=== PATIENT | female | born 1950 | race Caucasian/White ===

== ENCOUNTER 2017-04-20 20:06 | Inpatient (IN) | payer OTHER ==
[~2017-04-20] VITALS: Ht 157.5 cm; Wt 64.0 kg
[2017-04-20 20:07] VITALS: BP_SYST 120
[2017-04-20] MEDS ORDERED: NACL 0.9% 1,000 ML IV ONE (20:19)
[2017-04-20] MEDS ORDERED: LEVE500T13 PO (20:41)
[2017-04-20] MEDS ORDERED: LIP10 PO (20:48)
[2017-04-20] MEDS ORDERED: LEVO125T8 PO (20:48)
[2017-04-20] MEDS ORDERED: CLOP75TA2 PO (20:49)
[2017-04-20] MEDS ORDERED: ASPI81TA2 PO (20:50)
[2017-04-20] MEDS ORDERED: ASCO500T20 PO (20:50)
[2017-04-20] MEDS ORDERED: CHOL100062 PO (20:51)
[2017-04-20] MEDS ORDERED: TUM500 PO (20:52)
[2017-04-20] MEDS ORDERED: FAMO20TA8 PO (20:52)
[2017-04-20] MEDS ORDERED: BENA10TA2 PO (20:53)
[2017-04-20] MEDS ORDERED: PHEN100C4 PO ×2 (20:54→20:56)
[2017-04-20] MEDS ORDERED: DEXT1CAP3 PO (20:57)
[2017-04-20] MEDS ORDERED: MEMA28CA PO (20:57)
[2017-04-20] MEDS ORDERED: GLU850 PO (20:57)
[2017-04-20 20:58] LABS: BASOPHILS % (AUTO) 0.5 % (0.0-2.0); EOSINOPHILS # (AUTO) 0.1 K/uL (0.0-0.4); EOSINOPHILS % (AUTO) 1.5 % (0.0-4.0); HEMATOCRIT 33.2 % (36-48); HEMOGLOBIN 11.1 g/dL (12.0-16.0); LYMPHOCYTES # (AUTO) 0.7 K/uL (1.0-5.5); LYMPHOCYTES % (AUTO) 11.4 % (20.5-51.5); MEAN CORPUSCULAR HEMOGLOBIN 28 pg (27-31); MEAN CORPUSCULAR HGB CONC 34 % (32-36); MEAN CORPUSCULAR VOLUME 85 fL (79.0-98.0); MONOCYTES # (AUTO) 0.5 K/uL (0.0-1.0); MONOCYTES % (AUTO) 7.6 % (1.7-9.3); NEUTROPHILS # (AUTO) 4.6 K/uL (1.8-7.7); PLATELET COUNT (AUTO) 332 K/uL (130-430); RED BLOOD CELL COUNT(AUTO) 3.91 MIL/uL (4.2-6.2); RED CELL DISTRIBUTION WIDTH 14.4 % (9.0-15.0); WHITE BLOOD COUNT (AUTO) 5.9 K/uL (4.8-10.8)
[2017-04-20] MEDS ORDERED: INSU100V11 SQ ×2 (20:58)
[2017-04-20] MEDS ORDERED: REM15 PO (20:59)
[2017-04-20] MEDS ORDERED: MAG-55 PO (21:01)
[2017-04-20] MEDS ORDERED: ACET-2165 PO (21:02)
[2017-04-20] MEDS ORDERED: BISA5TAB10 PO (21:02)
[2017-04-20] MEDS ORDERED: MAGN400O4 PO (21:03)
[2017-04-20] MEDS ORDERED: GLUC1VIA4 IM (21:04)
[2017-04-20 21:05] LABS: CALCIUM 9.6 mg/dL (8.4-11.0)
[2017-04-20 21:09] LABS: INR 1.1 (0.8-1.2); PROTHROMBIN TIME 11.5 SECS (9.5-12.5)
[2017-04-20 21:11] LABS: ALBUMIN 3.8 g/dL (3.4-4.8); TOTAL BILIRUBIN 0.6 mg/dL (0.0-1.0)
[2017-04-20] MEDS ORDERED: LORazepam 2 MG/ML VIAL IVP ONE (21:15)
[2017-04-20 21:18] LABS: CREATININE 8.67 mg/dL (0.55-1.30)
[2017-04-20] MEDS ORDERED: LORazepam 2 MG/ML VIAL (FOR ER USE) ONE (21:36)
[2017-04-20] MEDS ORDERED: ACETAMINOPHEN 325 MG TABLET PO PRN (22:00)
[2017-04-20] MEDS ORDERED: ZOLPIDEM TARTRATE 5 MG TABLET PO PRN (22:00)
[2017-04-20] MEDS ORDERED: MAGNESIUM SULFATE 50 ML IV PRN (22:00)
[2017-04-20] MEDS ORDERED: POTASSIUM CHLORIDE 10 MEQ TAB.PRT.SR PO PRN (22:00)
[2017-04-20] MEDS ORDERED: DEXTROSE 50% JECT 50 ML DISP.SYRIN IVP PRN (22:00)
[2017-04-20] MEDS ORDERED: ONDANSETRON HCL 4 MG/2 ML VIAL IVP PRN (22:00)
[2017-04-20] MEDS ORDERED: DOCUSATE SODIUM 100 MG CAPSULE PO PRN (22:00)
[2017-04-20] MEDS ORDERED: LORazepam 2 MG/ML VIAL (FOR ER USE) IM ONE (22:30)
[2017-04-21] MEDS: 0.45% NACL 1,000 ML IV SCH ×2 (00:19→09:29)
[2017-04-21] MEDS: LORazepam 2 MG/ML VIAL IVP PRN ×3 (02:58→21:04)
[2017-04-21 07:37] LABS: CALCIUM 8.9 mg/dL (8.4-11.0); CREATININE 7.38 mg/dL (0.55-1.30); POTASSIUM 4.8 mmol/L (3.5-5.1)
[2017-04-21 07:38] LABS: BASOPHILS % (AUTO) 0.5 % (0.0-2.0); EOSINOPHILS # (AUTO) 0.2 K/uL (0.0-0.4); EOSINOPHILS % (AUTO) 2.8 % (0.0-4.0); HEMATOCRIT 30.8 % (36-48); HEMOGLOBIN 10.5 g/dL (12.0-16.0); LYMPHOCYTES # (AUTO) 0.7 K/uL (1.0-5.5); LYMPHOCYTES % (AUTO) 12.5 % (20.5-51.5); MEAN CORPUSCULAR HEMOGLOBIN 29 pg (27-31); MEAN CORPUSCULAR HGB CONC 34 % (32-36); MEAN CORPUSCULAR VOLUME 85 fL (79.0-98.0); MONOCYTES # (AUTO) 0.5 K/uL (0.0-1.0); MONOCYTES % (AUTO) 9.1 % (1.7-9.3); NEUTROPHILS # (AUTO) 4.2 K/uL (1.8-7.7); NEUTROPHILS % (AUTO) 75.1 % (40.0-70.0); PLATELET COUNT (AUTO) 236 K/uL (130-430); RED BLOOD CELL COUNT(AUTO) 3.61 MIL/uL (4.2-6.2); RED CELL DISTRIBUTION WIDTH 14.2 % (9.0-15.0); WHITE BLOOD COUNT (AUTO) 5.6 K/uL (4.8-10.8)
[2017-04-21 08:54] VITALS: BP_SYST 105
[2017-04-21] MEDS: ASPIRIN 81 MG TAB.CHEW PO SCH (09:16)
[2017-04-21] MEDS: levETIRAcetam 500 MG TABLET PO SCH ×2 (09:16→21:00)
[2017-04-21] MEDS: LEVOTHYROXINE SODIUM 0.125 MG TABLET PO SCH (09:16)
[2017-04-21] MEDS: HEPARIN SODIUM,PORCINE 5000 UNITS/ML VIAL SUBCUT SCH ×2 (09:21→21:10)
[2017-04-21 12:14] LABS: BILIRUBIN,URINE NEGATIVE (NEGATIVE); BLOOD, URINE 1+ (NEGATIVE); CLARITY/URINE CLEAR (CLEAR); COLOR,URINE YELLOW (YELLOW); GLUCOSE,URINE TRACE (NEGATIVE); KETONES,URINE NEGATIVE (NEGATIVE); LEUKOCYTE ESTERASE ,URINE TRACE (NEGATIVE); NITRITE, URINE POSITIVE (NEGATIVE); PH,URINE 5.5 (5.0-8.0); PROTEIN URINE NEGATIVE (NEGATIVE); UROBILINOGEN,URINE 0.2 (0.2-1.0)
[2017-04-21 12:29] LABS: BACTERIA,URINE MODERATE /HPF (None Seen); MUCUS,URINE 1+ /LPF (None Seen); RBC,URINE 0-3 /HPF (0-3)
[2017-04-21 12:30] VITALS: BP_SYST 90
[2017-04-21 14:06] VITALS: BP_SYST 97
[2017-04-21] MEDS: cefTRIAXone 1 GM in D5W 50 ML IV SCH (15:48)
[2017-04-21 16:08] VITALS: BP_SYST 97
[2017-04-21 19:30] VITALS: BP_SYST 101
[2017-04-21] MEDS: D5NS 1,000 ML IV SCH (20:46)
[2017-04-21] MEDS: PHENYTOIN 100 MG CAPSULE PO SCH (21:00)
[2017-04-21] MEDS: ATORVASTATIN 10 MG TABLET PO SCH (21:00)
[2017-04-22] MEDS: LORazepam 2 MG/ML VIAL IVP PRN ×2 (01:35→19:53)
[2017-04-22 07:40] LABS: BASOPHILS % (AUTO) 0.7 % (0.0-2.0); EOSINOPHILS # (AUTO) 0.3 K/uL (0.0-0.4); EOSINOPHILS % (AUTO) 5.1 % (0.0-4.0); HEMATOCRIT 33.7 % (36-48); HEMOGLOBIN 11.3 g/dL (12.0-16.0); LYMPHOCYTES # (AUTO) 0.7 K/uL (1.0-5.5); LYMPHOCYTES % (AUTO) 13.1 % (20.5-51.5); MEAN CORPUSCULAR HEMOGLOBIN 29 pg (27-31); MEAN CORPUSCULAR HGB CONC 34 % (32-36); MEAN CORPUSCULAR VOLUME 86 fL (79.0-98.0); MONOCYTES # (AUTO) 0.5 K/uL (0.0-1.0); MONOCYTES % (AUTO) 9.4 % (1.7-9.3); NEUTROPHILS # (AUTO) 3.8 K/uL (1.8-7.7); NEUTROPHILS % (AUTO) 71.7 % (40.0-70.0); PLATELET COUNT (AUTO) 260 K/uL (130-430); RED CELL DISTRIBUTION WIDTH 14.1 % (9.0-15.0); WHITE BLOOD COUNT (AUTO) 5.3 K/uL (4.8-10.8)
[2017-04-22 07:49] LABS: PROTHROMBIN TIME 11.3 SECS (9.5-12.5)
[2017-04-22 07:53] LABS: CALCIUM 9.3 mg/dL (8.4-11.0); CREATININE 5.1 mg/dL (0.55-1.30); POTASSIUM 4.4 mmol/L (3.5-5.1)
[2017-04-22 08:30] VITALS: BP_SYST 118
[2017-04-22] MEDS ORDERED: MEPERIDINE HCL/PF 100 MG/ML AMP ONE ×2 (10:11→10:12)
[2017-04-22] MEDS ORDERED: MIDAZOLAM HCL 5 MG/5 ML VIAL ONE ×2 (10:12)
[2017-04-22] MEDS ORDERED: SIMETHICONE 40 MG/0.6 ML ML ONE (10:12)
[2017-04-22] MEDS ORDERED: MEPERIDINE HCL/PF 100 MG/ML AMP IV ONE ×2 (10:28→10:32)
[2017-04-22] MEDS ORDERED: MIDAZOLAM HCL 5 MG/5 ML VIAL IVP ONE ×4 (10:30→10:38)
[2017-04-22] MEDS: levETIRAcetam 500 MG TABLET PO SCH ×2 (12:10→22:13)
[2017-04-22] MEDS: LEVOTHYROXINE SODIUM 0.125 MG TABLET PO SCH (12:10)
[2017-04-22] MEDS: ASPIRIN 81 MG TAB.CHEW PO SCH (12:10)
[2017-04-22] MEDS: HEPARIN SODIUM,PORCINE 5000 UNITS/ML VIAL SUBCUT SCH ×2 (12:11→22:24)
[2017-04-22] MEDS: D5NS 1,000 ML IV SCH (12:15)
[2017-04-22] MEDS: MORPHINE 2 MG/ML INJ. SYRINGE IVP PRN ×2 (14:00→22:26)
[2017-04-22] MEDS: cefTRIAXone 1 GM in D5W 50 ML IV SCH (14:04)
[2017-04-22] MEDS: SILVER 44.4 ML GEL.ER.ML. TP SCH (16:46)
[2017-04-22 17:04] VITALS: BP_SYST 119
[2017-04-22] MEDS: INSULIN ASPART 100 UNITS/ML, 10 ML VIAL (NovoLOG) SUBCUT PRN ×2 (18:30→22:21)
[2017-04-22 20:00] VITALS: BP_SYST 122
[2017-04-22] MEDS: ATORVASTATIN 10 MG TABLET PO SCH (22:13)
[2017-04-22] MEDS: PHENYTOIN 100 MG CAPSULE PO SCH (22:14)
[2017-04-23] MEDS: LORazepam 2 MG/ML VIAL IVP PRN ×4 (00:04→15:23)
[2017-04-23] MEDS: INSULIN ASPART 100 UNITS/ML, 10 ML VIAL (NovoLOG) SUBCUT PRN ×3 (06:47→21:03)
[2017-04-23 06:56] LABS: BASOPHILS % (AUTO) 0.2 % (0.0-2.0); EOSINOPHILS % (AUTO) 0.6 % (0.0-4.0); HEMATOCRIT 31.7 % (36-48); HEMOGLOBIN 10.7 g/dL (12.0-16.0); LYMPHOCYTES # (AUTO) 0.4 K/uL (1.0-5.5); LYMPHOCYTES % (AUTO) 6.1 % (20.5-51.5); MEAN CORPUSCULAR HEMOGLOBIN 29 pg (27-31); MEAN CORPUSCULAR HGB CONC 34 % (32-36); MEAN CORPUSCULAR VOLUME 85 fL (79.0-98.0); MONOCYTES # (AUTO) 0.5 K/uL (0.0-1.0); MONOCYTES % (AUTO) 8.3 % (1.7-9.3); NEUTROPHILS # (AUTO) 5.2 K/uL (1.8-7.7); NEUTROPHILS % (AUTO) 84.8 % (40.0-70.0); PLATELET COUNT (AUTO) 221 K/uL (130-430); RED BLOOD CELL COUNT(AUTO) 3.72 MIL/uL (4.2-6.2); RED CELL DISTRIBUTION WIDTH 14.1 % (9.0-15.0); WHITE BLOOD COUNT (AUTO) 6.1 K/uL (4.8-10.8)
[2017-04-23 07:05] LABS: CALCIUM 8.5 mg/dL (8.4-11.0); CREATININE 3.01 mg/dL (0.55-1.30); POTASSIUM 3.6 mmol/L (3.5-5.1)
[2017-04-23 08:00] VITALS: BP_SYST 136
[2017-04-23] MEDS: LEVOTHYROXINE SODIUM 0.125 MG TABLET PO SCH (09:00)
[2017-04-23] MEDS: ASPIRIN 81 MG TAB.CHEW PO SCH (09:00)
[2017-04-23] MEDS: levETIRAcetam 500 MG TABLET PO SCH ×2 (09:00→21:00)
[2017-04-23] MEDS: D5NS 1,000 ML IV SCH (09:36)
[2017-04-23] MEDS: HEPARIN SODIUM,PORCINE 5000 UNITS/ML VIAL SUBCUT SCH ×2 (09:36→20:57)
[2017-04-23] MEDS: SILVER 44.4 ML GEL.ER.ML. TP SCH (09:39)
[2017-04-23] MEDS: D5/0.45 NS 1,000 ML IV SCH ×2 (10:15→15:36)
[2017-04-23 12:30] VITALS: BP_SYST 124
[2017-04-23] MEDS: cefTRIAXone 1 GM in D5W 50 ML IV SCH (15:36)
[2017-04-23] MEDS ORDERED: GASTROGRAFIN 120 ML ONE (16:31)
[2017-04-23 16:45] VITALS: BP_SYST 130
[2017-04-23] MEDS: ATORVASTATIN 10 MG TABLET PO SCH (21:00)
[2017-04-23] MEDS: PHENYTOIN 100 MG CAPSULE PO SCH (21:00)
[2017-04-24 00:47] VITALS: BP_SYST 148
[2017-04-24 04:27] VITALS: BP_SYST 136
[2017-04-24] MEDS: D5/0.45 NS 1,000 ML IV SCH (06:00)
[2017-04-24] MEDS: INSULIN ASPART 100 UNITS/ML, 10 ML VIAL (NovoLOG) SUBCUT PRN ×4 (06:36→21:40)
[2017-04-24 07:06] LABS: BASOPHILS % (AUTO) 0.3 % (0.0-2.0); EOSINOPHILS % (AUTO) 0.3 % (0.0-4.0); HEMATOCRIT 33.7 % (36-48); HEMOGLOBIN 11.2 g/dL (12.0-16.0); LYMPHOCYTES # (AUTO) 0.5 K/uL (1.0-5.5); LYMPHOCYTES % (AUTO) 6.8 % (20.5-51.5); MEAN CORPUSCULAR HEMOGLOBIN 29 pg (27-31); MEAN CORPUSCULAR HGB CONC 33 % (32-36); MEAN CORPUSCULAR VOLUME 86 fL (79.0-98.0); MONOCYTES # (AUTO) 0.5 K/uL (0.0-1.0); MONOCYTES % (AUTO) 6.7 % (1.7-9.3); NEUTROPHILS % (AUTO) 85.9 % (40.0-70.0); PLATELET COUNT (AUTO) 292 K/uL (130-430); RED BLOOD CELL COUNT(AUTO) 3.94 MIL/uL (4.2-6.2); RED CELL DISTRIBUTION WIDTH 14.1 % (9.0-15.0)
[2017-04-24 07:21] LABS: CALCIUM 9.1 mg/dL (8.4-11.0); CREATININE 2.19 mg/dL (0.55-1.30); POTASSIUM 3.2 mmol/L (3.5-5.1)
[2017-04-24 07:40] VITALS: BP_SYST 139
[2017-04-24] MEDS: HEPARIN SODIUM,PORCINE 5000 UNITS/ML VIAL SUBCUT SCH ×2 (08:55→21:38)
[2017-04-24] MEDS: LORazepam 2 MG/ML VIAL IVP PRN (08:58)
[2017-04-24] MEDS: MORPHINE 2 MG/ML INJ. SYRINGE IVP PRN (08:59)
[2017-04-24] MEDS: levETIRAcetam 500 MG TABLET PO SCH ×2 (09:00→21:00)
[2017-04-24] MEDS: LEVOTHYROXINE SODIUM 0.125 MG TABLET PO SCH (09:00)
[2017-04-24] MEDS: SILVER 44.4 ML GEL.ER.ML. TP SCH (09:00)
[2017-04-24] MEDS: ASPIRIN 81 MG TAB.CHEW PO SCH (09:00)
[2017-04-24] MEDS ORDERED: COMMUNICATION ORDER XX ONE (09:15)
[2017-04-24 09:48] LABS: ALBUMIN 3.3 g/dL (3.4-4.8); BILIRUBIN,DIRECT 0.2 mg/dL (0.0-0.3); PHOSPHORUS 3.1 mg/dL (2.7-4.5)
[2017-04-24] MEDS ORDERED: POTASSIUM CHLORIDE 40 MEQ, LIDOCAINE JECT 2% PF 100 MG 50 MG in NS 250 ML IV ONE (10:15)
[2017-04-24] MEDS ORDERED: D5/0.45 NS 1,000 ML IV SCH ×2 (11:15→18:00)
[2017-04-24 11:31] VITALS: BP_SYST 140
[2017-04-24] MEDS: cefTRIAXone 1 GM in D5W 50 ML IV SCH (14:37)
[2017-04-24 16:05] VITALS: BP_SYST 158
[2017-04-24] MEDS: FAT EMULSIONS 250 ML IV SCH (17:10)
[2017-04-24] MEDS ORDERED: [UNRECOGNIZED DRUG - OTHER] IV SCH ×8 (18:00)
[2017-04-24] MEDS ORDERED: CALCIUM GLUCONATE IV SCH ×8 (18:00)
[2017-04-24] MEDS ORDERED: TPN PERIPHERAL IV SCH ×8 (18:00)
[2017-04-24] MEDS ORDERED: POTASSIUM ACETATE IV SCH ×8 (18:00)
[2017-04-24 20:30] VITALS: BP_SYST 157
[2017-04-24] MEDS: ATORVASTATIN 10 MG TABLET PO SCH (21:00)
[2017-04-24] MEDS: PHENYTOIN 100 MG CAPSULE PO SCH (21:00)
[2017-04-25] VITALS (7 sets, daily range): BP systolic 99–155
[2017-04-25] MEDS: INSULIN ASPART 100 UNITS/ML, 10 ML VIAL (NovoLOG) SUBCUT PRN ×4 (06:06→22:11)
[2017-04-25 06:18] LABS: BASOPHILS % (AUTO) 0.5 % (0.0-2.0); EOSINOPHILS # (AUTO) 0.1 K/uL (0.0-0.4); EOSINOPHILS % (AUTO) 1.1 % (0.0-4.0); HEMATOCRIT 32.1 % (36-48); HEMOGLOBIN 10.8 g/dL (12.0-16.0); LYMPHOCYTES # (AUTO) 0.8 K/uL (1.0-5.5); LYMPHOCYTES % (AUTO) 11.2 % (20.5-51.5); MEAN CORPUSCULAR HEMOGLOBIN 29 pg (27-31); MEAN CORPUSCULAR HGB CONC 34 % (32-36); MEAN CORPUSCULAR VOLUME 86 fL (79.0-98.0); MONOCYTES # (AUTO) 0.5 K/uL (0.0-1.0); MONOCYTES % (AUTO) 7.6 % (1.7-9.3); NEUTROPHILS # (AUTO) 5.3 K/uL (1.8-7.7); NEUTROPHILS % (AUTO) 79.6 % (40.0-70.0); PLATELET COUNT (AUTO) 253 K/uL (130-430); RED BLOOD CELL COUNT(AUTO) 3.73 MIL/uL (4.2-6.2); RED CELL DISTRIBUTION WIDTH 14.5 % (9.0-15.0); WHITE BLOOD COUNT (AUTO) 6.7 K/uL (4.8-10.8)
[2017-04-25 06:44] LABS: CALCIUM 8.8 mg/dL (8.4-11.0); CREATININE 1.53 mg/dL (0.55-1.30)
[2017-04-25] MEDS: levETIRAcetam 500 MG TABLET PO SCH (09:00)
[2017-04-25] MEDS: LEVOTHYROXINE SODIUM 0.125 MG TABLET PO SCH (09:00)
[2017-04-25] MEDS: ASPIRIN 81 MG TAB.CHEW PO SCH (09:00)
[2017-04-25] MEDS ORDERED: D5W IV ONE (09:45)
[2017-04-25] MEDS ORDERED: POTASSIUM CHLORIDE IV ONE (09:45)
[2017-04-25] MEDS ORDERED: LIDOCAINE JECT IV ONE (09:45)
[2017-04-25] MEDS: SILVER 44.4 ML GEL.ER.ML. TP SCH (09:54)
[2017-04-25] MEDS: HEPARIN SODIUM,PORCINE 5000 UNITS/ML VIAL SUBCUT SCH ×2 (09:58→22:08)
[2017-04-25] MEDS: D5W 1,000 ML IV SCH (10:22)
[2017-04-25] MEDS: cefTRIAXone 1 GM in D5W 50 ML IV SCH (15:14)
[2017-04-25] MEDS: LORazepam 2 MG/ML VIAL IVP PRN (17:08)
[2017-04-25] MEDS ORDERED: POTASSIUM ACETATE IV SCH ×9 (18:00)
[2017-04-25] MEDS ORDERED: [UNRECOGNIZED DRUG - OTHER] IV SCH ×9 (18:00)
[2017-04-25] MEDS ORDERED: K PHOS IV SCH ×9 (18:00)
[2017-04-25] MEDS ORDERED: TPN PERIPHERAL IV SCH ×9 (18:00)
[2017-04-25] MEDS: FAT EMULSIONS 250 ML IV SCH (18:22)
[2017-04-25] MEDS: PHENYTOIN SODIUM 100 MG/2 ML VIAL (DILANTIN) IVP SCH (21:16)
[2017-04-25] MEDS: ATORVASTATIN 10 MG TABLET PO SCH (22:05)
[2017-04-25] MEDS: levETIRAcetam 500 MG in NS 100 ML IV SCH (23:25)
[2017-04-26 03:54] VITALS: BP_SYST 135
[2017-04-26] MEDS: D5W 1,000 ML IV SCH ×3 (05:39→22:44)
[2017-04-26] MEDS: INSULIN ASPART 100 UNITS/ML, 10 ML VIAL (NovoLOG) SUBCUT PRN ×4 (05:48→21:51)
[2017-04-26 07:20] LABS: BASOPHILS % (AUTO) 0.5 % (0.0-2.0); EOSINOPHILS # (AUTO) 0.2 K/uL (0.0-0.4); EOSINOPHILS % (AUTO) 3.5 % (0.0-4.0); HEMATOCRIT 30.3 % (36-48); HEMOGLOBIN 10.2 g/dL (12.0-16.0); LYMPHOCYTES # (AUTO) 1.1 K/uL (1.0-5.5); LYMPHOCYTES % (AUTO) 16.4 % (20.5-51.5); MEAN CORPUSCULAR HEMOGLOBIN 29 pg (27-31); MEAN CORPUSCULAR HGB CONC 34 % (32-36); MEAN CORPUSCULAR VOLUME 86 fL (79.0-98.0); MONOCYTES # (AUTO) 0.5 K/uL (0.0-1.0); MONOCYTES % (AUTO) 7.5 % (1.7-9.3); NEUTROPHILS # (AUTO) 4.7 K/uL (1.8-7.7); NEUTROPHILS % (AUTO) 72.1 % (40.0-70.0); PLATELET COUNT (AUTO) 225 K/uL (130-430); RED BLOOD CELL COUNT(AUTO) 3.55 MIL/uL (4.2-6.2); RED CELL DISTRIBUTION WIDTH 14.1 % (9.0-15.0); WHITE BLOOD COUNT (AUTO) 6.5 K/uL (4.8-10.8)
[2017-04-26 07:51] LABS: CALCIUM 8.6 mg/dL (8.4-11.0); CREATININE 1.25 mg/dL (0.55-1.30); POTASSIUM 3.5 mmol/L (3.5-5.1)
[2017-04-26 08:11] VITALS: BP_SYST 101
[2017-04-26] MEDS: ASPIRIN 81 MG TAB.CHEW PO SCH (09:00)
[2017-04-26] MEDS: LEVOTHYROXINE SODIUM 0.125 MG TABLET PO SCH (09:00)
[2017-04-26] MEDS: levETIRAcetam 500 MG in NS 100 ML IV SCH ×2 (09:59→21:53)
[2017-04-26] MEDS: HEPARIN SODIUM,PORCINE 5000 UNITS/ML VIAL SUBCUT SCH ×2 (10:13→21:43)
[2017-04-26] MEDS: SILVER 44.4 ML GEL.ER.ML. TP SCH (10:17)
[2017-04-26] MEDS: cefTRIAXone 1 GM in D5W 50 ML IV SCH (14:52)
[2017-04-26] MEDS ORDERED: fentaNYL CITRATE/PF 100 MCG/2 ML AMP ONE (15:07)
[2017-04-26] MEDS ORDERED: MIDAZOLAM HCL 5 MG/5 ML VIAL ONE ×2 (15:07→15:08)
[2017-04-26] MEDS ORDERED: SIMETHICONE 40 MG/0.6 ML ML ONE (15:08)
[2017-04-26] MEDS ORDERED: fentaNYL CITRATE/PF 100 MCG/2 ML AMP IVP ONE (16:06)
[2017-04-26] MEDS ORDERED: MIDAZOLAM HCL 5 MG/5 ML VIAL IVP ONE (16:08)
[2017-04-26 17:15] VITALS: BP_SYST 115
[2017-04-26] MEDS ORDERED: K PHOS IV SCH ×9 (18:00)
[2017-04-26] MEDS ORDERED: POTASSIUM ACETATE IV SCH ×9 (18:00)
[2017-04-26] MEDS ORDERED: [UNRECOGNIZED DRUG - OTHER] IV SCH ×9 (18:00)
[2017-04-26] MEDS ORDERED: TPN PERIPHERAL IV SCH ×9 (18:00)
[2017-04-26] MEDS: FAT EMULSIONS 250 ML IV SCH (18:48)
[2017-04-26 19:30] VITALS: BP_SYST 123
[2017-04-26] MEDS: ATORVASTATIN 10 MG TABLET PO SCH (21:45)
[2017-04-26] MEDS: PANTOPRAZOLE SODIUM 40 MG/VIAL (PROTONIX) IVP SCH (21:53)
[2017-04-26] MEDS: PHENYTOIN SODIUM 100 MG/2 ML VIAL (DILANTIN) IVP SCH (21:54)
[2017-04-26 23:00] VITALS: BP_SYST 104
[2017-04-27 04:00] VITALS: BP_SYST 114
[2017-04-27] MEDS: INSULIN ASPART 100 UNITS/ML, 10 ML VIAL (NovoLOG) SUBCUT PRN ×2 (06:18→11:32)
[2017-04-27 07:44] LABS: BASOPHILS % (AUTO) 0.3 % (0.0-2.0); EOSINOPHILS # (AUTO) 0.4 K/uL (0.0-0.4); EOSINOPHILS % (AUTO) 5.2 % (0.0-4.0); HEMATOCRIT 29.1 % (36-48); MEAN CORPUSCULAR HEMOGLOBIN 29 pg (27-31); MEAN CORPUSCULAR HGB CONC 34 % (32-36); MEAN CORPUSCULAR VOLUME 85 fL (79.0-98.0); MONOCYTES # (AUTO) 0.5 K/uL (0.0-1.0); MONOCYTES % (AUTO) 6.2 % (1.7-9.3); NEUTROPHILS # (AUTO) 5.4 K/uL (1.8-7.7); NEUTROPHILS % (AUTO) 74.3 % (40.0-70.0); PLATELET COUNT (AUTO) 185 K/uL (130-430); RED BLOOD CELL COUNT(AUTO) 3.42 MIL/uL (4.2-6.2); RED CELL DISTRIBUTION WIDTH 13.9 % (9.0-15.0); WHITE BLOOD COUNT (AUTO) 7.4 K/uL (4.8-10.8)
[2017-04-27 07:55] LABS: CALCIUM 7.8 mg/dL (8.4-11.0); CREATININE 0.87 mg/dL (0.55-1.30); PHOSPHORUS 3.4 mg/dL (2.7-4.5)
[2017-04-27 08:39] VITALS: BP_SYST 107
[2017-04-27] MEDS ORDERED: MAGNESIUM SULFATE 4 GM in D5W 250 ML IV ONE (09:45)
[2017-04-27] MEDS: HEPARIN SODIUM,PORCINE 5000 UNITS/ML VIAL SUBCUT SCH (09:50)
[2017-04-27] MEDS: PANTOPRAZOLE SODIUM 40 MG/VIAL (PROTONIX) IVP SCH (09:52)
[2017-04-27] MEDS: levETIRAcetam 500 MG in NS 100 ML IV SCH (09:53)
[2017-04-27] MEDS: ASPIRIN 81 MG TAB.CHEW PO SCH (09:54)
[2017-04-27] MEDS: LEVOTHYROXINE SODIUM 0.125 MG TABLET PO SCH (09:54)
[2017-04-27] MEDS: SILVER 44.4 ML GEL.ER.ML. TP SCH (09:54)
[2017-04-27] MEDS: D5W 1,000 ML IV SCH (11:33)
[2017-04-27 12:16] VITALS: BP_SYST 104
[2017-04-27 13:03] VITALS: BP_SYST 104
[2017-04-27 15:10] VITALS: BP_SYST 124
== END 2017-04-27 15:50 | DRG 673 ==
LOC: SED 20:06 → STU 21:31 → SMU 04-23 10:37
PROVIDERS: ADMIT General Practice; ATTEND General Practice
PROC: 0JBR0ZZ Excision of Left Foot Subcutaneous Tissue and Fascia, Open Approach (ICD-10-PCS; 2017-04-21)
PROC: 0DH63UZ Insertion of Feeding Device into Stomach, Percutaneous Approach (ICD-10-PCS; principal; 2017-04-22 10:20)
PROC: 0DH63UZ Insertion of Feeding Device into Stomach, Percutaneous Approach (ICD-10-PCS; 2017-04-26)
PROC: 0DB68ZX Excision of Stomach, Via Natural or Artificial Opening Endoscopic, Diagnostic (ICD-10-PCS; 2017-04-26)
PROC: 3E0336Z Introduction of Nutritional Substance into Peripheral Vein, Percutaneous Approach (ICD-10-PCS; 2017-04-26)
DX: N17.0 Acute kidney failure with tubular necrosis (principal); G93.41 Metabolic encephalopathy; E46 Unspecified protein-calorie malnutrition; R13.10 Dysphagia, unspecified; E87.0 Hyperosmolality and hypernatremia; K26.9 Duodenal ulcer, unspecified as acute or chronic, without hemorrhage or perforation; E87.2 Acidosis; N39.0 Urinary tract infection, site not specified; K29.70 Gastritis, unspecified, without bleeding; E11.621 Type 2 diabetes mellitus with foot ulcer; E11.40 Type 2 diabetes mellitus with diabetic neuropathy, unspecified; B35.1 Tinea unguium; E11.51 Type 2 diabetes mellitus with diabetic peripheral angiopathy without gangrene; L97.529 Non-pressure chronic ulcer of other part of left foot with unspecified severity; F03.90 Unspecified dementia, unspecified severity, without behavioral disturbance, psychotic disturbance, mood disturbance, and anxiety; I10 Essential (primary) hypertension; D63.8 Anemia in other chronic diseases classified elsewhere; E86.9 Volume depletion, unspecified; R62.7 Adult failure to thrive; E03.9 Hypothyroidism, unspecified; G40.909 Epilepsy, unspecified, not intractable, without status epilepticus; E78.5 Hyperlipidemia, unspecified; E87.5 Hyperkalemia; Z79.899 Other long term (current) drug therapy; Z88.1 Allergy status to other antibiotic agents; Z79.02 Long term (current) use of antithrombotics/antiplatelets; Z79.82 Long term (current) use of aspirin; Z74.01 Bed confinement status; Z68.25 Body mass index [BMI] 25.0-25.9, adult
CPT/HCPCS: 36415; 43239; 43246; 71010; 74240-TC; 76770; 80048; 80053; 81000-TC; 82040-TC; 82150-TC; 82247-TC; 82248-TC; 82550-TC; 82962; 83036; 83690-TC; 83735-TC; 84100-TC; 84155-TC; 84478-TC; 84484; 85025; 85610-TC; 85730-TC; 87081; 88305; 88312; 88313; 92610-GN; 93005; 96360; 96372; 99285; A6261; C9113; J0610; J0696; J1165; J1644; J1815; J1953; J2060; J2175; J2250; J2270; J2405; J3010; J3475; J3480; J7030; J7042; J7050; J7060; Q9963